=== PATIENT | male | born 1980 | race Hispanic/Latino ===

== ENCOUNTER 2016-09-10 12:47 | Emergency (ER) | payer OTHER ==
[~2016-09-10] VITALS: Ht 167.6 cm; Wt 78.0 kg
[~2016-09-10 12:47] MED LIST: AMITRIPTYLINE H10 M1 PO; ANTIVERT 12.512.5 MG PO; ANTIVERT 25 MG25 M1 PO; ANTIVERT 25MG #1 PAC PO; CIPRODEX 0.3%-7.5 ML OT; GOOD SENSE IBU200 MG PO; PREDNISONE10 MG PO; ROBITUSSIN W/CO10 ML PO; ZITHROMAX Z-PA250 M1 PO; ZOFRAN4 M1 SL
[2016-09-10 12:50] VITALS: BP 127/86
--- NOTE | 2016-09-10 13:21 | ED EAR COMPLAINT ---
History of Present Illness General Chief Complaint: Ear Complaints Stated Complaint: EAR INFECTION Source: patient, old records Exam Limitations: no limitations Vital Signs & Intake/Output Vital Signs & Intake/Output Vital Signs Date Time Temp Pulse Resp B/P B/P Pulse O2 O2 Flow FiO2 Mean Ox Delivery Rate 09/10 1250 96.1 86 16 127/86 100 Room Air Allergies Coded Allergies: NO KNOWN ALLERGIES (10/08/14) Reconcile Medications AMITRIPTYLINE HCL (Amitriptyline Hydrochloride) 10 MG TABLET 1 TAB PO QPM HEADACHES (Reported) Azithromycin (Zithromax Z-Nick) 250 MG CAP 1 DP PO AD BRONCHITIS 2 the first day followed by 1 for days 2-5 Ciprofloxacin HCl (Cipro) 500 MG TABLET 1 TAB PO BID OTITIS EXTERNA CIPROFLOXACIN HCL/DEXAMETH (Ciprodex Otic Suspension) 7.5 ML SHARITA 4 DROP OT BID OTITIS EXTERNA Ibuprofen 200 MG TABLET 2 TAB PO Q6H PRN HEADACHES (Reported) Ibuprofen 800 MG TABLET 1 TAB PO Q8 PRN PAIN Meclizine (Antivert) 12.5 MG TABLET 1 TAB PO Q4H PRN DIZZINESS (Reported) Prednisone 10 MG TABLET 4 TAB PO DAILY EAR INFECTION (Reported) Robitussin AC (Guaifenesin-Codeine Syrup) 10 ML UDC 10 ML PO Q6HR PRN COUGH Tramadol HCl 50 MG TABLET 1-2 TAB PO Q6 PRN pain Triage Note: 36 Y/O MALE C/O BILATERAL EAR PAIN X 1 WEEK. THEYRE "ITCHY INSIDE". Triage Nurses Notes Reviewed? yes HPI: Patient is a 36-year-old male presents complaining of bilateral ear pain 1 week. Pain is a pressure sensation currently severe. Patient has been using Ciprodex ear drops since yesterday with no improvement. Patient denies fevers, chills, sore throat, nasal congestion, ear drainage. Past History Travel History Traveled to [place] past 21 day No Medical History Any Pertinent Medical History? see below for history Neurological: migraine EENT: NONE Cardiovascular: NONE Respiratory: NONE Gastrointestinal: NONE Hepatic: NONE Renal: NONE Musculoskeletal: NONE Psychiatric: anxiety, insomnia Endocrine: NONE Blood Disorders: NONE Cancer(s): NONE SECURITY AND COMPLIANCE PROJECT MANAGER/Reproductive: NONE History of MRSA: No History of VRE: No History of CDIFF: No Surgical History Surgical History: non-contributory Psychosocial History Who do you live with Patient/Self What is your primary language Romansh Tobacco Use: Current Not Daily Family History Hx Contributory? No Review of Systems Review of Systems Constitutional: Denies: chills, fever. EENTM: Reports: see HPI. Respiratory: Denies: cough, short of breath. Cardiovascular: Denies: chest pain. GI: Denies: abdominal pain. Genitourinary: Reports: no symptoms. Musculoskeletal: Reports: no symptoms. Skin: Reports: no symptoms. Neurological/Psychological: Reports: no symptoms. Hematologic/Endocrine: Reports: no symptoms. Immunologic/Allergic: Reports: no symptoms. Physical Exam Physical Exam General Appearance: well developed/nourished, alert, awake Head: atraumatic, normal appearance Eyes: Bilateral: normal appearance, PERRL, EOMI. Ears: Bilateral: Tympanic normal, other (IFLAMMED EAC). Nose: normal inspection Mouth/Throat: normal mouth inspection, pharynx normal Neck: normal inspection, supple, full range of motion, trachea midline Cardiovascular/Respiratory: normal breath sounds, no respiratory distress Back: normal inspection, normal range of motion Neurologic/Psych: no motor/sensory deficits, awake, alert, oriented x 3, normal gait, normal mood/affect Skin: intact, normal color, warm/dry Progress Differential Diagnoses I considered the following diagnoses in my evaluation of the patient: Otitis media, otitis externa, mastoiditis, sinusitis Plan of Care: Patient afebrile, nontoxic appearing. Appears consistent with otitis externa. Patient started the antibiotic drops yesterday. Initial ED EKG: none Departure Departure Time of Disposition: 1328 Disposition: HOME OR SELF CARE Condition: Stable Clinical Impression Primary Impression: Otitis externa of both ears Qualifiers: Otitis externa type: unspecified type Chronicity: acute Qualified Code: H60.503 - Unspecified acute noninfective otitis externa, bilateral Referrals: PATIENT HAS NO PRIMARY CARE DR (PCP/Family) Additional Instructions: Continue the Ciprodex eardrops to both ears twice a day for 7 days. Return to the emergency department if fevers or worsening of symptoms. Departure Forms: Customer Survey General Discharge Information Prescriptions: Current Visit Scripts Ciprofloxacin HCl (Cipro) 1 TAB PO BID #14 TAB Ibuprofen 1 TAB PO Q8 PRN PAIN #20 TAB Tramadol HCl 1-2 TAB PO Q6 PRN pain #15 TAB
[2016-09-10] MEDS ORDERED: TRAMADOL HCL50 M1 PO (13:29)
[2016-09-10] MEDS ORDERED: IBUPROFEN800 M1 PO (13:29)
[2016-09-10] MEDS ORDERED: CIPRO500 M1 PO (13:29)
== END 2016-09-10 13:34 ==
LOC: ERH 12:47
DX: H60.93 Unspecified otitis externa, bilateral (principal)

== ENCOUNTER 2016-10-14 12:40 | Emergency (ER) | payer OTHER ==
[~2016-10-14] VITALS: Ht 165.1 cm; Wt 78.0 kg
[~2016-10-14 12:40] MED LIST changes: +CIPRO500 M1 PO; +IBUPROFEN800 M1 PO; +TRAMADOL HCL50 M1 PO
[2016-10-14 12:51] VITALS: BP 131/67
--- NOTE | 2016-10-14 13:11 | ED HAND/WRIST INJURY COMPLAINT ---
History of Present Illness General Chief Complaint: Laceration Procedure Stated Complaint: ? INFECTION IN LFT HAND Source: patient, old records Exam Limitations: no limitations Vital Signs & Intake/Output Vital Signs & Intake/Output Vital Signs Date Time Temp Pulse Resp B/P B/P Pulse O2 O2 Flow FiO2 Mean Ox Delivery Rate 10/14 1251 98.4 88 18 131/67 100 Room Air Allergies Coded Allergies: NO KNOWN ALLERGIES (10/08/14) Reconcile Medications AMITRIPTYLINE HCL (Amitriptyline Hydrochloride) 10 MG TABLET 1 TAB PO QPM HEADACHES (Reported) Azithromycin (Zithromax Z-Nick) 250 MG CAP 1 DP PO AD BRONCHITIS 2 the first day followed by 1 for days 2-5 Ciprofloxacin HCl (Cipro) 500 MG TABLET 1 TAB PO BID cellulitis Ciprofloxacin HCl (Cipro) 500 MG TABLET 1 TAB PO BID OTITIS EXTERNA CIPROFLOXACIN HCL/DEXAMETH (Ciprodex Otic Suspension) 7.5 ML SHARITA 4 DROP OT BID OTITIS EXTERNA Ibuprofen 200 MG TABLET 2 TAB PO Q6H PRN HEADACHES (Reported) Ibuprofen 800 MG TABLET 1 TAB PO Q8 PRN PAIN Meclizine (Antivert) 12.5 MG TABLET 1 TAB PO Q4H PRN DIZZINESS (Reported) Prednisone 10 MG TABLET 4 TAB PO DAILY EAR INFECTION (Reported) Robitussin AC (Guaifenesin-Codeine Syrup) 10 ML UDC 10 ML PO Q6HR PRN COUGH Tramadol HCl 50 MG TABLET 1-2 TAB PO Q6 PRN pain Triage Note: PT TO ED FOR SWOLLEN LEFT HAND, STATES HE CUT HIS HAND ON WEDNESDAY WHILE OPENING CLAMS - HAD SUTURES PLACED AT . HAND APPEARS SWOLLEN AND WARM. Triage Nurses Notes Reviewed? yes Duration: day(s): (4), constant Timing: recent history Injury Environment: home Severity: moderate Severity Numbers: 6 Pain/Injury Location: Left: Hand. Context: laceration Method of Injury: laceration No Modifying Factors: none Associated Symptoms: swelling, redness HPI: 36-year-old male presents to ER for evaluation presents for wound check. He was [facility] at [facility] ago status post sustaining laceration while he was cutting open clams requiring sutures. Patient since then states he's had redness warmth and swelling near the site of the laceration. He denies any rashes elsewhere on his arm no difficulty with range of motion of his finger no discharge from the laceration no bleeding no fever no chills. He has not sought care for the symptoms until today (JASMIN TAMEZ) Past History Travel History Traveled to [place] past 21 day No Medical History Any Pertinent Medical History? see below for history Neurological: migraine EENT: NONE Cardiovascular: NONE Respiratory: NONE Gastrointestinal: NONE Hepatic: NONE Renal: NONE Musculoskeletal: NONE Psychiatric: anxiety, insomnia Endocrine: NONE Blood Disorders: NONE Cancer(s): NONE CERT PHARMACY TECH/Reproductive: NONE History of MRSA: No History of VRE: No History of CDIFF: No Surgical History Surgical History: non-contributory Psychosocial History Who do you live with Patient/Self What is your primary language Martiniquais Tobacco Use: Never used ETOH Use: denies use Illicit Drug Use: denies illicit drug use Family History Hx Contributory? No (JASMIN TAMEZ) Review of Systems Review of Systems Constitutional: Reports: see HPI. All Other Systems: Reviewed and Negative Comments Review of systems: See HPI, All other systems negative. Constitutional, no chills no fever, no malaise no weight loss HEENT: no sore throat no congestion, no ear pain Cardiovascular: No chest pain , no palpitation , no orthopnea Skin: no rashes, no change in skin Respiratory: No dyspnea no cough no sputum GI: No nausea no vomiting, no diarrhea : No dysuria Muscle skeletal: No joint pain, no joint swelling, no back pain, no neck pain, Neurologic: No numbness no confusion, no headache Psych: No stress no depression,. Heme/endocrine: No bruising no bleeding Immunology: No lymphadenopathy (JASMIN TAMEZ) Physical Exam Physical Exam General Appearance: well developed/nourished, alert, awake Hand Left: normal range of motion Hand Right: normal inspection, normal range of motion Comments: Well-developed well-nourished patient in no apparent distress. HEENT: Atraumatic, extraocular motion intact Neck: Supple, FROM Back: FROM Cardiovascular: Regular rate and rhythms Respiratory: No respiratory distress. Patient speaking in full complete sentences. Breath sounds clear to auscultation bilaterally: NO W/R/R Shoulder: Atraumatic/Stable. FROM . Elbow: Atraumatic/stable. FROM. No laxity Upper arm/Forearm: Atraumatic. Nontender. 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 Skin intact. FROM Pulses: Normal/equal radial pulses bilaterally. Brisk cap refill Lower Extremities: full range of motion Neuro: awake, alert, and oriented to person, place and time. There were no obvious focal neurologic abnormalities. Skin: Warm & dry;No appreciable rash on exposed skin Psych: Mood affect normal, normal memory normal judgment. (JASMIN TAMEZ) Progress Differential Diagnosis: abscess, cellulitis, contusion, compartment syndrome, felon, septic arthritis, sprain Plan of Care: I discussed with the patient at length all of their results. I had an extensive conversation regarding need for close follow up with their primary care physician this week as well as return precautions the patient will return to ER in 48 hours for wound check. I answered all of their questions, they feel comfortable with the plan and follow-up care. I discussed with the patient/family the medications that they will receive. I gave them signs and symptoms that could indicate an adverse reaction. I have advised them to limit their activities until they can see how they respond to the medication. (JASMIN TAMEZ) Departure Departure Time of Disposition: 1314 Disposition: HOME OR SELF CARE Condition: Stable Clinical Impression Primary Impression: Cellulitis Referrals: PATIENT HAS NO PRIMARY CARE DR (PCP/Family) Additional Instructions: FOLLOW UP IN THE ER FOR WOUND CHECK ON WednesdaySeptember. CIPRO DIRECTED. Return anytime sooner as discussed with any concerns or worsening signs of infection: Streaking up your skin fever chills worsening pain or any other concerns. This was sent to [facility] Departure Forms: Customer Survey General Discharge Information Prescriptions: Current Visit Scripts Ciprofloxacin HCl (Cipro) 1 TAB PO BID #14 TAB (JASMIN TAMEZ) PA/VALUATION MANAGER Co-Sign Statement Statement: ED Attending supervision documentation- I saw and evaluated the patient. I have also reviewed all the pertinent lab results and diagnostic results. I agree with the findings and the plan of care as documented in the PA's/VALUATION MANAGER's documentation. x I have reviewed the ED Record and agree with the PA's/VALUATION MANAGER's documentation. [] Additions or exceptions (if any) to the PAs/VALUATION MANAGER's note and plan are summarized below: [] (CLARA WARREN,TORREY)
[2016-10-14] MEDS ORDERED: CIPRO500 M1 PO (13:16)
== END 2016-10-14 13:21 ==
LOC: ERH 12:40
DX: L03.114 Cellulitis of left upper limb (principal)